=== PATIENT | male | born 1945 | race Caucasian/White ===

== ENCOUNTER → 2018-05-05 09:04 | Outpatient (CLI) | payer MEDICARE, SELFPAY ==
[2018-05-05 10:17] LABS: Appearance Urine UA CLEAR; Bilirubin Urine UA NEGATIVE (NEGATIVE); Color Urine UA YELLOW; Glucose Urine UA NEGATIVE (Negative); Ketones Urine UA NEGATIVE (NEGATIVE); Leukocyte Esterase Urine UA NEGATIVE (NEGATIVE); Nitrite Urine UA NEGATIVE (Negative); Occult Blood Urine UA NEGATIVE (Negative); Protein Urine UA NEGATIVE (Negative); Specific Gravity Urine UA 1.025 (1.000-1.035); Urobilinogen Urine UA 0.2 E.U./dL (0.2)
[2018-05-05 10:43] LABS: Bacteria Urine Occasional (0-1); Culture Indicated Urine Cult Not Indicated; Hyaline Casts Urine 1-5/LPF; Mucus Urine 1+ (Negative); RBC Urine 0-1/HPF (0-5/HPF); Squamous Epithelial Cell Urine 0-1 /HPF; WBC Urine 0-1/HPF (0-5/HPF)
== END ==
PROVIDERS: PCP Internal Medicine; Visit Provider Internal Medicine
DX: R36.1 Hematospermia (principal)
CPT/HCPCS: 81001

== ENCOUNTER → 2019-05-18 14:26 | Outpatient (CLI) | payer MEDICARE, SELFPAY ==
[2019-05-18 15:30] LABS: Hemoglobin A1C% w Est Avg Glu 10.6 % (4.0-6.0)
== END ==
PROVIDERS: PCP Internal Medicine; Referring Provider Internal Medicine; Visit Provider Internal Medicine
DX: E11.9 Type 2 diabetes mellitus without complications (principal); N48.1 Balanitis
CPT/HCPCS: 36415; 83036

== ENCOUNTER → 2019-09-01 10:57 | Outpatient (CLI) | payer MEDICARE, SELFPAY ==
--- NOTE | 2019-09-01 | DI.US.S_ITS ---
PROCEDURE: US ABDOMEN COMPLETE INDICATIONS: ABD PAIN TECHNIQUE: Real-time scanning was performed of the abdominal and retroperitoneal organs, with image documentation. COMPARISON: None. FINDINGS: Liver: Liver is diffusely increased in echogenicity. No focal hepatic abnormalities identified. Normal hepatic size. Gallbladder: Gallbladder is mildly contracted and there is a single stone which may be impacted. No gallbladder wall thickening or pericholecystic fluid. Biliary ducts: Not well visualized. Pancreas: Not well visualized. Spleen: Spleen is normal in size and homogeneous in echotexture. Kidneys: Kidneys are normal in size and echotexture. Right kidney measures 12.9 cm long; left kidney measures 13.3 cm long. No hydronephrosis or nephrolithiasis. No solid masses. Aorta: Not well visualized. Iliacs: Not well visualized. IVC: Not well visualized. Miscellaneous: No free abdominal fluid. IMPRESSION: 1. Increased hepatic echogenicity noted possibly related to hepatic steatosis but other sources of hepatocellular disease cannot be excluded. Recommend clinical correlation. 2. Cholelithiasis and mobility of the stone is indeterminate and may be impacted. Recommend clinical correlation and follow-up. Dictated by: Brennan Craft [facility] Interpreted: Chana Zamudio MD on 09/01/2019 at 12:18 Approved by: Chana Zamudio MD, PhD on 09/01/2019 at 14:11
== END ==
PROVIDERS: PCP Internal Medicine; Referring Provider Internal Medicine; Visit Provider Internal Medicine
DX: R10.84 Generalized abdominal pain (principal); K80.20 Calculus of gallbladder without cholecystitis without obstruction
CPT/HCPCS: 76700

== ENCOUNTER → 2019-09-10 11:26 | Outpatient (CLI) | payer MEDICARE, SELFPAY ==
[2019-09-12 21:00] LABS: COVID19 Sendout Not Detected (Not Detect)
== END ==
PROVIDERS: PCP Internal Medicine; Visit Provider Physician Assistant
DX: Z11.59 Encounter for screening for other viral diseases (principal)
CPT/HCPCS: 87635

== ENCOUNTER 2019-09-13 09:56 | Day surgery (SDC) | payer MEDICARE, SELFPAY ==
[2019-09-08 10:26] VITALS: BMI 36.3
[2019-09-13] VITALS (9 sets, daily range): BP systolic 135–151; BP diastolic 62–84; PULSE 57–75; RESP 15–20; TEMP 36–36.4; O2SAT 92–97; BMI 35.9
--- NOTE | 2019-09-13 | PATH_ITS ---
[facility] Accession Number: [id number] . 01 Material submitted: . gallbladder - GALLBLADDER . 02 Diagnosis: Gallbladder, Cholecystectomy: Cholelithiasis with mild active cholecystitis. Two benign cystic duct lymph nodes. No evidence of neoplasm. [facility] 09/15/2019 1338 Local . 02 Electronically signed: . Patrick Oswald MD, PhD, Pathologist NPI- [id number] . 01 Gross description: . Specimen A is received in formalin, labeled with patient identification and gallbladder. It consists of a disrupted gallbladder measuring 5.2 cm in length and 3.3 cm in diameter with a segment of possible cystic duct measuring 1.5 x 1.0 x 0.6 cm. The staple line of the possible cystic duct segment is removed and the tissue underneath is inked blue. The possible cystic duct is 0.5 cm in diameter. The serosa is pink-anton and diffusely covered by adipose tissue. The hepatic surface is yellow-anton and ragged. Opening the specimen reveals pink to yellow-anton and mildly velvety mucosa with three black calculi measuring 2.0 x 2.0 x 1.0 cm in aggregate. The wall thickness is 0.2 cm. Within the adipose tissue there are two lymph node candidates ranging from 0.5 to 0.9 cm in greatest dimension. Charging Car Operator sections are submitted in three cassettes. . Summary of sections: A1 - possible cystic duct margin, shaved, one piece. A2 - signs sales representative sections of gallbladder, three pieces. A3 - one intact lymph node candidate (inked) and one bisected lymph node candidate, three pieces. ([id number]) /[facility] 09/14/2019 1417 Local . 02 Pathologist provided ICD-10: K80.60, K81.0 . 02 CPT . 072049 Performed at: 01 [facility] [address] [place] [address], [place], [place] [id number] MD Ernie Collier MD Phone: [phone] Performed at: 02 [facility] [address] [place], [place] [id number] MD Brittany Reyes MD Phone: [phone]
[2019-09-13] MEDS: LACTATED RINGERS 1,000 ML 100 ML IV (10:43)
[2019-09-13] MEDS: LACTATED RINGERS 1,000 ML 42 ML IV (10:45)
--- NOTE | 2019-09-13 11:19 | PM.PREOP ---
Pre-operative Note COVID-19 COVID-19 status: Negative Interval Note History & Physical reviewed/Exam performed by Physician: Yes Changes to H&P: No
[2019-09-13] MEDS: CEFAZOLIN 2 GM/100 ML FROZ.PIGGY IV (11:40)
--- NOTE | 2019-09-13 12:02 | SUR.OPER ---
Supine on padded OR bed, head on pillow, safety belt at thigh, left arm padded and tucked at side. Right arm secured on padded arm oard <90 degrees abduction. Legs uncrossed. Padded footboard in place. Tape over blanket to secure lower legs.
[2019-09-13] MEDS: BUPIVACAINE 0.25% (PF) VIAL 30 ML INJ (12:07)
--- NOTE | 2019-09-13 13:29 | P.OP_ITS ---
Operative Date/Time/Diagnoses Date of procedure: 09/13/19 Time of procedure: 13:29 Pre-op diagnosis: Biliary colic Post-op diagnosis: other (Chronic cholecystitis) Procedure & Clinicians Procedure: Laparoscopic cholecystectomy Same procedure as scheduled: Yes Indications: 74-year-old man with biliary colic and cholelithiasis on imaging. Surgeon: Fede Rondon Anesthesia Type: General Operative Notes Findings: Chronic cholecystitis large gallstones Estimated Blood Loss (mL): 30 Procedure in detail: The patient was placed supine on the table and bilateral lower extremity compression devices were applied. Anesthesia was induced they were intubated with an endotracheal tube and received 2g of Ancef. A time-out was performed. They were prepped and draped in sterile fashion. An supraumbilical incision was made, the fascia was sharply incised entering the abdomen atraumatically. A blunt tip 12mm balloon trocar was then inserted, pneumoperitoneum was established and inspection of the abdomen demonstrated no evidence of injury. They were placed head up and right side up and then a 11 mm port was placed high in the epigastrium and two 5mm in the right upper quadrant. The gallbladder was grasped by the fundus and retracted over the liver and retracted laterally by the infundibulum. There was evidence of chronic cholecystitis demonstrated by extensive adhesions between the omentum and the gallbladder and the liver which was carefully skeletonized. Using electrocautery the lateral plane between the gallbladder and the liver was op ened towards the fundus. The gallbladder was then retracted laterally and the medial plane was developed in the same manner. With the gallbladder mobilized the bottom of the cystic plate was visualized. The hepatocystic triangle was meticulosly skeletonized using hook electrocautery of all fat and fibrous tissue from both the front and the back. Only two structures were then clearly seen entering the gallbladder the cystic duct and the cystic artery. With the critical view of safety fully established the cystic duct was clipped twice proximally and once distally using the 10 mm clip applied under direct visualization and then sharply divided. Additional and placed 1 PDS endo-loop over the cystic duct. The cystic artery was divided in the same fashion. The gallbladder was removed from the liver bed using electro cautery. The liver bed was then inspected for hemostasis and this was achieved. The abdomen was irrigated with sterile saline and inspection was made that showed the clips in good position. The specimen was removed using Endo-Catch. The abdomen was desufflated. The umbilical fascia was closed with 0 Vicryl in a [id number] fashion under direct visualization. Skin incisions were irrigated and closed with 4-0 Monocryl. 30 ml of 0.25% bupivacaine was infiltrated into the subcutaneous tissue of the incisions. The wounds were sealed with Dermabond. Patient emerged from anesthesia was extubated and transferred to recovery in stable condition. The sponge and instrument count at the end of the operation was correct. Complications: none Post-operative Condition: stable Disposition: same day surgery
[2019-09-13] MEDS: ONDANSETRON 4 MG/2 ML INJ IV (13:56)
[2019-09-13] MEDS: OXYCODONE/ACETAMINOPHEN 5/325 TABLET 1 TAB PO (14:11)
== END 2019-09-13 15:10 | disposition home or self-care (01) ==
PROVIDERS: PCP Internal Medicine; Referring Provider Surgery; Visit Provider Surgery
PROC: 0FT44ZZ Resection of Gallbladder, Percutaneous Endoscopic Approach (ICD-10-PCS; CPT 47562; principal; 2019-09-13 11:15)
DX: K80.10 Calculus of gallbladder with chronic cholecystitis without obstruction (principal); E11.9 Type 2 diabetes mellitus without complications; I10 Essential (primary) hypertension; Z79.84 Long term (current) use of oral hypoglycemic drugs
CPT/HCPCS: 47562; J0690; J1100; J1885; J2405; J2704; J3010

== ENCOUNTER → 2019-10-12 13:11 | Outpatient (CLI) | payer MEDICARE, SELFPAY ==
--- NOTE | 2019-10-12 | DI.RAD.S_ITS ---
PROCEDURE: XR THORACIC SPINE 2V INDICATIONS: BACK PAIN TECHNIQUE: 3 views of the thoracic spine were acquired. COMPARISON: None. FINDINGS: Bones: No fractures or dislocations. No suspicious bony lesions. Twelve pairs of ribs are noted, and appear intact where visualized. Degenerative disc disease is moderate in severity along the thoracic spine, which is relatively poorly seen on the lateral view at the cervical thoracic junction. No paravertebral soft tissue swelling is found. No subluxation is identified. Soft tissues: No paravertebral stripe thickening. IMPRESSION: Moderate degenerative disc disease, no acute disease found. No prior compression fracture identified. Dictated by: Alvaro Rizo M.D. on 10/12/2019 at 15:28 Approved by: Alvaro Rizo M.D. on 10/12/2019 at 15:29
--- NOTE | 2019-10-12 13:21 | DI.RAD.S_ITS ---
PROCEDURE: XR LUMBAR SPINE 2-3V INDICATIONS: ACUTE BILATERAL LOW BACK PAIN TECHNIQUE: 2 views of the lumbar spine were acquired. COMPARISON: None. FINDINGS: Bones: 5 [id number] vertebrae are present. There is normal bony alignment. No vertebral body compression fractures. No suspicious bony lesions. Degenerative disc disease is moderately severe from L3 through S1, becoming progressively more prominent. Similarly the facet osteoarthritis over these 3 lower levels becomes progressively more prominent and thus there is significant spinal and foraminal stenosis likely present at L4-5 and especially L5-S1. Soft tissues: Overlying bowel gas pattern is normal. No suspicious soft tissue calcifications. IMPRESSION: No compression fracture found. Progressively greater degenerative disc disease and facet osteoarthritis over the middle and lower thirds of the lumbosacral spine to the degree that significant spinal and foraminal stenosis likely is present at L4-5 and L5-S1. Dictated by: Alvaro Rizo M.D. on 10/12/2019 at 15:27 Approved by: Alvaro Rizo M.D. on 10/12/2019 at 15:28
[2019-10-12 16:28] LABS: Add Manual Diff / Slide Review NO; Basophils Absolute Auto 100 /uL (0-100); Basophils Percent Auto 0.9 % (0-2); Eosinophils Absolute Auto 100 /uL (0-450); Eosinophils Percent Auto 1.6 % (2-4); Hematocrit 38.9 % (41-53); Hemoglobin 13.2 g/dL (13.5-17.5); Lymphocytes Absolute Auto 1600 /uL (1100-4500); Lymphocytes Percent Auto 25.4 % (25-40); Mean Corpuscular Volume 88.1 fL (80-100); Monocytes Absolute Auto 600 /uL (0-900); Monocytes Percent Auto 8.7 % (3-14); Neutrophils Absolute Auto 4000 /uL (1500-7000); Neutrophils Percent Auto 63.4 % (50-75); Platelet Count 149 X10^3/uL (150-400); Red Blood Cell Count 4.41 X10^6/uL (4.5-5.9); Red Cell Distribution Width 13.3 % (11.6-14.8); White Blood Cell Count 6.4 X10^3/uL (4.5-11.0)
[2019-10-12 17:00] LABS: Alanine Aminotransferase 60 IU/L (<50); Albumin 3.9 g/dL (3.5-5.0); Albumin Globulin Ratio 1.6 (1.0-2.8); Alkaline Phosphatase 55 U/L (38-126); Aspartate Aminotransferase 47 IU/L (17-59); BUN Creatinine Ratio 18.2 (6-22); Bilirubin Total 1.3 mg/dL (0.2-1.3); Blood Urea Nitrogen 18 mg/dL (9-20); Calcium 9.2 mg/dL (8.4-10.2); Carbon Dioxide 29 mmol/L (22-32); Chloride 102 mmol/L (98-107); Estimated Glomerular Filt Rate > 60.0 mL/min (>60); Globulin 2.5 g/dL (1.7-4.1); Glucose 137 mg/dL (80-110); HEMOLYSIS < 15 (0-50); Potassium 4.3 mmol/L (3.4-5.1); Sodium 138 mmol/L (137-145); Total Protein 6.4 g/dL (6.3-8.2)
== END ==
PROVIDERS: PCP Internal Medicine; Referring Provider Internal Medicine; Visit Provider Internal Medicine
DX: M54.5 Low back pain (principal)
CPT/HCPCS: 36415; 72070; 72100; 80053; 85025

== ENCOUNTER → 2019-11-21 15:28 | Outpatient (CLI) | payer MEDICARE, SELFPAY ==
[2019-11-21 21:58] LABS: COVID19 -Nasal RAPID Negative (Negative)
== END ==
PROVIDERS: PCP Internal Medicine; Visit Provider Physician Assistant
DX: Z01.812 Encounter for preprocedural laboratory examination (principal)
CPT/HCPCS: 87635

== ENCOUNTER 2019-11-24 12:30 | Day surgery (SDC) | payer MEDICARE, SELFPAY ==
[2019-11-24 13:03] VITALS: BP 180/89; PULSE 59; RESP 19; TEMP 36.4; O2SAT 98; BMI 79.0
[2019-11-24] MEDS: LACTATED RINGERS 1,000 ML 200 ML IV (13:11)
--- NOTE | 2019-11-24 13:42 | PM.HP.1 ---
History of Present Illness History of Present Illness Date Patient Seen: 11/24/19 Time Patient Seen: 13:43 Chief complaint: [facility] Narrative: The patient presents for colorectal sreening. He had previously normal colonoscopy 20 years ago. No personal or family history of colon cancer. On further history denies any recent gastrointestinal symptoms. No nausea, vomiting, abdominal pain, loss of appetite, unexplained weight loss, change in bowel habits, diarrhea, constipation, melena, hematochezia, or bright red blood per rectum. Patient History Medical History Diabetes (Acute) HTN (hypertension) (Acute) Surgical History Hx of hernia repair (Acute) Family & Social History Family History Mother Breast cancer Gallstones Brother Hypertension Gallstones Father Heart disease Social History: household members significant other Tobacco & Substance use: Smoking Status Never smoker alcohol intake current alcohol intake frequency holiday/special occasion Substance Use Type does not use Meds Home Medications and Allergies Home Medications Medication Instructions Recorded Confirmed Type aspirin 81 mg tablet,delayed 81 mg PO DAILY 09/07/19 11/24/19 History release atenolol 50 mg tablet 50 mg PO DAILY 09/07/19 11/24/19 History cholecalciferol (vitamin D3) 10 10 mcg PO DAILY 09/07/19 11/24/19 History mcg (400 unit) capsule finasteride 5 mg tablet 5 mg PO DAILY 09/07/19 11/24/19 History glyburide 5 mg tablet 5 mg PO DAILY 09/07/19 11/24/19 History hydrochlorothiazide 25 mg tablet 12.5 mg PO DAILY 09/07/19 11/24/19 History lisinopril 40 mg tablet 40 mg PO DAILY 09/07/19 11/24/19 History metformin 1,000 mg tablet 1,000 mg PO BID 09/07/19 11/24/19 History simvastatin 40 mg tablet 40 mg PO QPM 09/07/19 11/24/19 History tamsulosin 0.4 mg capsule 0.4 mg PO DAILY cap 09/07/19 11/24/19 History travoprost 0.004 % eye drops 1 drp OPHTHALMIC (EYE) PRN PRN 09/07/19 11/24/19 History acetaminophen [Tylenol] 650 mg PO QID PRN #60 cap 09/13/19 11/24/19 Rx oxycodone 5 mg PO Q6H PRN #30 tab 09/13/19 09/28/19 Rx Allergies Allergy/AdvReac Type Severity Reaction Status Date / Time No Known Drug Allergies Allergy Verified 11/24/19 12:59 Review of Systems Review of Systems Narrative: A 10 point review of systems is negative except as noted in the HPI Exam Vital Signs (past 8 hours): - 11/24/19 13:03 Temperature 97.6 F Pulse Rate 59 L Respiratory Rate 19 Blood Pressure 180/89 H Pulse Oximetry 98 Oxygen Delivery Method Room Air Narrative Exam Narrative: General-no acute distress, obese male HEENT-moist mucous membranes, no scleral icterus Neck-supple, no lymphadenopathy Chest- non labored respirations, clear to auscultation bilaterally Cardiac-regular rate no peripheral edema Abdomen-soft, nontender, non distended Extremities-warm, well perfused Neurological-alert and oriented, no focal deficits Assessment & Plan Assessment & Plan narrative: The patient requires colorectal screening and colonoscopy is recommended. Technical details were discussed. Risks, benefits, alternatives explained. Risks including but not limited to myocardial infarction, aspiration, bleeding, pain, missed lesion, incomplete examination, need for further radiographic studies, colonic perforation, and need for major abdominal surgery were discussed. All questions were answered to their satisfaction, and they are in agreement with this plan.
[2019-11-24] MEDS: fentaNYL 250 MCG/5 ML INJ IV (13:50)
[2019-11-24] MEDS: MIDAZOLAM 5 MG/5 ML VIAL IV (13:53)
--- NOTE | 2019-11-24 14:12 | PM.OP.ENDO ---
Operative Date/Time/Diagnoses Date of procedure: 11/24/19 Time of procedure: 14:12 Pre-op diagnosis: Screening colonoscopy Post-op diagnosis: same Procedure & Clinicians Study performed: Colonoscopy Same procedure as scheduled: Yes Indications: 74-year-old male here for screening colonoscopy Surgeon: Fede Rondon Procedure Notes SCOAP/Timeout: Performed Procedure in detail: Patient placed in left lateral recumbent position. Time out was performed. Procedural sedation was administered with Versed and Fentanyl. Examination began with a thorough inspection of the perianal area there was no evidence of fissures, fistulae, external hemorrhoids or cutaneous malignancy. The colonoscopy scope was then placed into the rectum the the lumen was insufflated with air. The scope was carefully advanced forward. Ultimately the cecum was intubated and confirmed by identification of the ileocecal valve, the appendiceal orifice and the confluence of the taenia. The scope was then slowly withdrawn examining colon thoroughly in all directions. In the rectum the rectal columns were identified and retroflexion of the scope was performed for inspection of the distal rectum and anal canal. The colonoscopy was notable for the followin. Quality of the preparation-fair 2. No masses or polyps 3. Sigmoid diverticulosis 4. Internal hemorrhoids Scope withdrawal time: 8 Sedation minutes: 19 Findings: diverticulosis and internal hemorrhoids Specimen(s): none sent Complications: none Impression: Normal colonoscopy Post-procedure Recommendations: Colonscopy in 10 years Disposition: same day surgery
[2019-11-24 14:15] VITALS: BP 140/75; PULSE 60; RESP 16; TEMP 36.2; O2SAT 96
[2019-11-24 14:19] VITALS: BP 144/79; PULSE 65; RESP 20; O2SAT 98
[2019-11-24 14:24] VITALS: BP 156/87; PULSE 63; RESP 20; TEMP 37.3; O2SAT 99
[2019-11-24 14:36] VITALS: BP 152/80; PULSE 64; RESP 16; TEMP 36.7; O2SAT 97
== END 2019-11-24 14:50 | disposition home or self-care (01) ==
PROVIDERS: PCP Internal Medicine; Referring Provider Internal Medicine; Visit Provider Surgery
PROC: 0DJD8ZZ Inspection of Lower Intestinal Tract, Via Natural or Artificial Opening Endoscopic (ICD-10-PCS; CPT 45378; principal; 2019-11-24 13:45)
DX: Z12.11 Encounter for screening for malignant neoplasm of colon (principal); E11.9 Type 2 diabetes mellitus without complications; I10 Essential (primary) hypertension; Z79.84 Long term (current) use of oral hypoglycemic drugs; K57.30 Diverticulosis of large intestine without perforation or abscess without bleeding; K64.8 Other hemorrhoids
CPT/HCPCS: G0121; 99152; J2250; J3010

== ENCOUNTER → 2020-01-02 11:31 | Outpatient (CLI) | payer MEDICARE, SELFPAY | PROVIDERS: PCP Internal Medicine; Referring Provider Internal Medicine; Visit Provider Internal Medicine | DX: M10.00 Idiopathic gout, unspecified site (principal); Z53.20 Procedure and treatment not carried out because of patient's decision for unspecified reasons ==

== ENCOUNTER → 2021-12-30 15:28 | Outpatient (CLI) | payer MEDICARE, SELFPAY ==
[2021-12-30 17:01] LABS: Influenza A - CEPHEID Flu A NEGATIVE (NEGATIVE); Influenza B - CEPHEID Flu B NEGATIVE (NEGATIVE); Respiratory Syncytial Virus Negative (Negative)
[2021-12-30 17:10] LABS: COVID-19 CEPHEID 4-PLEX PCR Negative (Negative)
== END ==
PROVIDERS: PCP Internal Medicine; Visit Provider Nurse Practitioner Family
DX: R42 Dizziness and giddiness (principal); Z20.828 Contact with and (suspected) exposure to other viral communicable diseases
CPT/HCPCS: 0241U

== ENCOUNTER 2024-06-16 22:32 | Emergency (ER) | payer MEDICARE, SELFPAY ==
[2024-06-16 22:59] VITALS: BP 210/92; PULSE 75; RESP 18; TEMP 36.8; O2SAT 99; BMI 33.3
--- NOTE | 2024-06-16 23:49 | DI.RAD.S_ITS ---
PROCEDURE: XR CHEST 1V INDICATIONS: chest pain TECHNIQUE: One view of the chest was acquired. COMPARISON: None. FINDINGS: Surgical changes and devices: None. Lungs and pleura: Lungs are clear. No pleural effusions or pneumothorax. Mediastinum: Aortic arch calcifications. Mediastinal contours appear normal. Heart size is normal. Bones and chest wall: No suspicious bony lesions. Overlying soft tissues appear unremarkable. IMPRESSION: No acute cardiothoracic process. Dictated by: Devyn King M.D. on 06/17/2024 at 0:10 Approved by: Devyn King M.D. on 06/17/2024 at 0:11
--- NOTE | 2024-06-16 23:49 | EKG_ITS ---
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
--- NOTE | 2024-06-17 00:19 | ED.GENADULT ---
HPI - General Adult General Chief complaint: Hypertension Stated complaint: states high bp Time Seen by Provider: 06/16/24 23:49 Source: patient Mode of arrival: Ambulatory History of Present Illness HPI narrative: 78-year-old male with history of hypertension and diabetes, visiting from [facility] for local work, recalls having a diabetes oral medication that lowered his blood pressure, he has subsequently been switch to Ozempic and metformin, blood pressure seemed to be improved, taking lisinopril and atenolol medications, recheck his blood pressure with cuff that he is traveling with, elevated blood pressure readings. No chest pain. No headache. No focal weakness or numbness. Related Data Home Medications Medication Instructions Recorded Confirmed aspirin 81 mg tablet,delayed 81 mg PO DAILY 09/07/19 06/17/24 release atenolol 50 mg tablet 50 mg PO DAILY 09/07/19 06/17/24 cholecalciferol (vitamin D3) 10 10 mcg PO DAILY 09/07/19 06/17/24 mcg (400 unit) capsule finasteride 5 mg tablet 5 mg PO DAILY 09/07/19 06/17/24 glyburide 5 mg tablet 7.5 mg PO DAILY 09/07/19 06/17/24 lisinopril 40 mg tablet 40 mg PO DAILY 09/07/19 06/17/24 metformin 1,000 mg tablet 1,000 mg PO BID 09/07/19 06/17/24 simvastatin 40 mg tablet 40 mg PO QPM 09/07/19 06/17/24 tamsulosin 0.4 mg capsule (Flomax) 0.4 mg PO DAILY 09/07/19 06/17/24 colchicine 0.6 mg tablet See Rx Instructions .Route .COMPLEX 06/17/24 06/17/24 indomethacin 25 mg capsule 25 mg PO TID PRN Gout 06/17/24 06/17/24 latanoprost 0.005 % eye drops 1 drp ophthalmic (eye) BEDTIME 06/17/24 06/17/24 Previous Rx's Medication Instructions Recorded amlodipine 2.5 mg tablet 2.5 mg PO DAILY #14 tabs 06/17/24 Allergies Allergy/AdvReac Type Severity Reaction Status Date / Time No Known Drug Allergies Allergy Verified 06/23/22 10:42 Patient History Medical History (Updated 06/17/24 @ 01:52 by Chevy Martinez MD) HTN (hypertension) Diabetes Surgical History Hx of hernia repair Family History Mother Breast cancer Gallstones Brother Hypertension Gallstones Father Heart disease Social History (Updated 09/07/19 @ 15:08 by Joann Alberto RN) marital status: unmarried,living together household members: significant other occupational status: employed alcohol intake: current substance use type: does not use alcohol intake frequency: holidays/special occasions only Exam Narrative Exam Narrative: GENERAL: Well-developed patient, in mild distress. HEAD: Atraumatic. Normocephalic. EYES: Pupils equal round and reactive. Extraocular motions intact. No scleral icterus. No injection or drainage. ENT: Nose without bleeding, purulent drainage. Throat without erythema, tonsillar hypertrophy or exudate. Airway patent. NECK: Trachea midline. Non tender CARDIOVASCULAR: Regular rate and rhythm without murmurs, gallops, or rubs. RESPIRATORY: Clear to auscultation. Breath sounds equal bilaterally. No wheezes, rales, or rhonchi. GASTROINTESTINAL: Abdomen soft, non-tender, nondistended. EXTREMITIES: No edema or joint tenderness. BACK: Nontender without deformity or crepitance. No flank tenderness. NEURO: AOx3. Motor functions grossly nonfocal SKIN: No rash or erythema of visible areas Initial Vital Signs Initial Vital Signs: Vital Signs Temperature 98.2 F 06/16/24 22:59 Pulse Rate 75 06/16/24 22:59 Respiratory Rate 18 06/16/24 22:59 Blood Pressure 210/92 H 06/16/24 22:59 Pulse Oximetry 99 06/16/24 22:59 Oxygen Delivery Method Room Air 06/16/24 22:59 Course Orders Ordered: ED Orders 06/16/24 23:49 XR chest 1V Stat Complete Blood Count AUTO DIFF Stat Comprehensive Metabolic Panel Stat Lipase Stat Troponin & CK Cardiac Panel Stat EKG-12 Lead Stat 06/17/24 01:15 CT abdomen pelvis w con Stat Discontinued Medications Amlodipine Besylate (Amlodipine 5 Mg Tablet) 5 mg PO NOW ONE Stop: 06/17/24 00:22 Last Admin: 06/17/24 01:02 Dose: 5 mg Documented By: AB Vital Signs Vital signs: Vital Signs - 8 hr 06/16/24 22:59 06/17/24 00:42 06/17/24 01:00 Temperature 98.2 F Pulse Rate 75 76 84 Respiratory Rate 18 19 25 H Blood Pressure 210/92 H Pulse Oximetry 99 100 100 Oxygen Delivery Method Room Air 06/17/24 01:01 06/17/24 01:01 06/17/24 01:50 Temperature Pulse Rate 81 84 Respiratory Rate 26 H Blood Pressure 177/121 H Pulse Oximetry 100 98 Oxygen Delivery Method Room Air Room Air 06/17/24 01:50 Temperature Pulse Rate Respiratory Rate Blood Pressure 224/100 H Pulse Oximetry Oxygen Delivery Method Medical Decision Making Lab Data Lab results reviewed: Yes I reviewed the patient's lab results. Lab results narrative: White blood cell count 6800, hemoglobin 13.4, platelets adequate. Glucose 155. Remainder of basic metabolic panel unremarkable. Normal renal function. Potassium 3.8. T bili 1.9 side elevation noted, other LFTs unremarkable. Lipase 502 mild elevation. 06/17/24 00:20 06/17/24 00:20 Labs: Lab Results 06/17/24 Range/Units 00:20 WBC 6.8 (4.5-11.0) X10^3/uL RBC 4.42 L (4.5-5.9) X10^6/uL Hgb 13.4 L (13.5-17.5) g/dL Hct 38.6 L (41-53) % MCV 87.3 (80-100) fL MCH 30.4 (26-34) PG MCHC 34.8 (30-36) % RDW 14.1 (11.6-14.8) % Plt Count 148 L (150-400) X10^3/uL Neut % (Auto) 64.6 (50-75) % Lymph % (Auto) 24.7 L (25-40) % [place] % (Auto) 7.4 (3-14) % Eos % (Auto) 2.3 (2-4) % Baso % (Auto) 1.0 (0-2) % Neut # (Auto) 4400 (9801-8747) /uL Lymph # (Auto) 1700 (6461-9516) /uL [place] # (Auto) 500 (0-900) /uL Eos # (Auto) 200 (0-450) /uL Baso # (Auto) 100 (0-100) /uL Sodium 139 (137-145) mmol/L Potassium 3.8 (3.4-5.1) mmol/L Chloride 103 (98-107) mmol/L Carbon Dioxide 29 (22-32) mmol/L BUN 20 (9-20) mg/dL Creatinine 1.01 (0.66-1.25) mg/dL Estimated GFR > 60 (>60) mL/min BUN/Creatinine Ratio 19.8 (6-22) Glucose 155 H (70-99) mg/dL Calcium 8.8 (8.4-10.2) mg/dL Total Bilirubin 1.9 H (0.2-1.3) mg/dL AST 32 (17-59) IU/L ALT 25 (<50) IU/L Alkaline Phosphatase 68 (38-126) U/L Total Creatine Kinase 224 H (55-170) U/L Troponin I < 0.012 (0.01-0.034) ng/mL Total Protein 7.0 (6.3-8.2) g/dL Albumin 4.2 (3.5-5.0) g/dL Globulin 2.8 (1.7-4.1) g/dL Albumin/Globulin Ratio 1.5 (1.0-2.8) Lipase 502 H (23-300) U/L Imaging Data CT scan - abdomen/pelvis: Radiologist's Impression: [place] [address] CT Scan Report Signed Patient: Rudy Bravo MR#: [id number] : 1945 Acct:[id number] Age/Sex: 78 / M Date of Service: 06/17/24 Loc: ED Accession Number: [id number] Procedure: CT abdomen pelvis w con Ordering Provider: Chevy Martinez MD PROCEDURE: CT ABDOMEN PELVIS W CON INDICATIONS: lipasemia TECHNIQUE: After the administration of intravenous contrast, axial sections acquired from the lung bases to the pubic symphysis. Coronal and sagittal reformats were performed. For radiation dose reduction, the following was used: automated exposure control, adjustment of mA and/or kV according to patient size. COMPARISON: None. FINDINGS: Image quality: Diagnostic. Peritoneum: No pneumoperitoneum or ascites. Bones: No acute osseous abnormality. Mild multilevel lumbar osteoarthrosis. Lower Chest: Moderate triple-vessel coronary artery calcifications. Liver: Normal in size and contour. Hepatic steatosis. Gallbladder: Surgically absent. Biliary tree: No intrahepatic or extrahepatic biliary ductal dilatation. Pancreas: Within normal limits. No peripancreatic fluid collection or parenchymal non enhancement. Spleen: Normal in size and contour. Kidneys: No hydronephrosis or obstructive urolithiasis. Adrenals: No adrenal nodularity. 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 : Enlarged prostate gland indenting the base of the urinary bladder (83). Stomach: Normal in size and contour. Bowel: Normal in diameter without any bowel obstruction. Appendix within normal limits (). Lymph Nodes: No retroperitoneal, mesenteric, or inguinal lymphadenopathy. Vascular: No abdominal aortic aneurysm. 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 The visualized arterial vasculature is patent. Soft Tissues: No acute abnormality. IMPRESSION: 1. No CT evidence of acute pancreatitis or drainable peripancreatic fluid collection. 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 Nonemergent vascular surgery consultation would be recommended for further management. 3. Hepatic steatosis. Dictated by: Devyn King M.D. on 06/17/2024 at 1:44 Approved by: Devyn King M.D. on 06/17/2024 at 1:53 ECG Data Attestation: I personally reviewed and interpreted this ECG as follows: Interpretation: Normal sinus rhythm with first-degree AV block, ventricular rate 77, SC 232. QRS 128, QTC 473. MDM Narrative Medical decision making narrative: 78-year-old male with history of hypertension and diabetes, recent low blood pressure due to oral diabetic agent, improved with change to Ozempic/metformin combination, for blood pressure currently taking atenolol and lisinopril, also on tamsulosin for urinary retention/prostate indications. Elevated blood pressure. No chest pain. Screening labs sent. EKG shows sinus rhythm, first-degree AV block noted with SC interval 232. Chest x-ray, no acute changes. See tele radiology report. Screening labs normal renal function, lipase elevation 500s noted. Get recent abdominal pain that seemed to get better. We discussed imaging, he would like to proceed. CT abdomen and pelvis ordered. Elevated blood pressure, first-degree AV block noted, will not increase his atenolol for now due to AVB, already on maximum effective dose for blood pressure lisinopril, also taking tamsulosin. We will add amlodipine 5 mg tablet. Prescription for 2.5 mg tablets sent to his pharmacy. Can continue home blood pressure cuff readings, which seemed to be correlating to our readings. Advised to contact PCP advised via phone for titration of amlodipine and/or other agents as an outpatient. Patient did not want to stay for CT results, left against medical advice, with . Instructed to contact PCP for CT results. (0300, late entry, CT abdomen and pelvis showed no pancreatic lesions or inflammation) Discharge Plan Departure Patient Disposition: Left Against Medical Advice Clinical Impression: Hypertension, Elevated lipase, Left against medical advice Activity Restrictions/Additional Instructions: Visiting from [facility] for local work. Reported low blood pressure with oral diabetic medications that had been subsequently switched, now taking Ozempic and metformin with improved blood pressure. You are still taking lisinopril and atenolol medications. Elevated blood pressures noted on your cuff measurements. Confirmed same values here elevated. Screening labs showed elevated lipase of unclear significance, CT abdomen and pelvis to evaluate pancreas unremarkable. CT performed but you decided that you wanted to leave before any results were available. Blood pressure is still available. You left the emergency department against medical advice. Could consider increased dose of the atenolol but you had first-degree AV block conduction noted on your EKG, we will keep same dose of beta-saadia for now. Blood pressure elevated, oral dose of amlodipine 5 mg given. Prescription for 2.5 mg tablets to use daily if needed, could be increased to 5 mg in consultation with your regular doctor by phone in follow up. Lisinopril at 40 mg daily is about maximum in its blood pressure lowering effect. Call your doctor during regular hours tomorrow Thursday for further blood pressure measurement recommendations. You were also taking tamsulosin for urinary retention indications, which also has some blood pressure lowering effect, continue taking this medication as well. I did send a prescription for amlodipine 2.5 mg tablets to local pharmacy for you to pick up and delivery driver if you should use this option. Prescriptions: New amlodipine 2.5 mg tablet 2.5 mg PO DAILY Qty: 14 0RF No Action aspirin 81 mg tablet,delayed release (DR/EC) 81 mg PO DAILY atenolol 50 mg tablet 50 mg PO DAILY cholecalciferol (vitamin D3) 10 mcg (400 unit) capsule 10 mcg PO DAILY finasteride 5 mg tablet 5 mg PO DAILY tamsulosin [Flomax] 0.4 mg capsule 0.4 mg PO DAILY glyburide 5 mg tablet 7.5 mg PO DAILY lisinopril 40 mg tablet 40 mg PO DAILY metformin 1,000 mg tablet 1,000 mg PO BID simvastatin 40 mg tablet 40 mg PO QPM latanoprost 0.005 % Drops 1 drp OPHTHALMIC (EYE) BEDTIME indomethacin 25 mg Capsule 25 mg PO TID PRN (Reason: Gout) Rx Instructions: administer with food or milk colchicine 0.6 mg Tablet See Rx Instructions .ROUTE .COMPLEX Rx Instructions: Take 2 tablets by mouth at first sign of flare then take 1 tablet one hour later. Referrals: Parish Licona MD [Primary Care Provider] - Stand Alone Forms: Patient Portal/API, Against Med. Advice (Qatari)
[2024-06-17 00:35] LABS: Add Manual Diff / Slide Review NO; Basophils Absolute Auto 100 /uL (0-100); Eosinophils Absolute Auto 200 /uL (0-450); Eosinophils Percent Auto 2.3 % (2-4); Hematocrit 38.6 % (41-53); Hemoglobin 13.4 g/dL (13.5-17.5); Lymphocytes Absolute Auto 1700 /uL (1100-4500); Lymphocytes Percent Auto 24.7 % (25-40); Mean Corpuscular HGB Conc 34.8 % (30-36); Mean Corpuscular Hemoglobin 30.4 PG (26-34); Mean Corpuscular Volume 87.3 fL (80-100); Monocytes Absolute Auto 500 /uL (0-900); Monocytes Percent Auto 7.4 % (3-14); Neutrophils Absolute Auto 4400 /uL (1500-7000); Neutrophils Percent Auto 64.6 % (50-75); Platelet Count 148 X10^3/uL (150-400); Red Blood Cell Count 4.42 X10^6/uL (4.5-5.9); Red Cell Distribution Width 14.1 % (11.6-14.8); White Blood Cell Count 6.8 X10^3/uL (4.5-11.0)
[2024-06-17 00:42] VITALS: PULSE 76; RESP 19; O2SAT 100
[2024-06-17 00:45] LABS: Alanine Aminotransferase 25 IU/L (<50); Albumin 4.2 g/dL (3.5-5.0); Albumin Globulin Ratio 1.5 (1.0-2.8); Alkaline Phosphatase 68 U/L (38-126); Aspartate Aminotransferase 32 IU/L (17-59); BUN Creatinine Ratio 19.8 (6-22); Bilirubin Total 1.9 mg/dL (0.2-1.3); Blood Urea Nitrogen 20 mg/dL (9-20); Calcium 8.8 mg/dL (8.4-10.2); Carbon Dioxide 29 mmol/L (22-32); Chloride 103 mmol/L (98-107); Creatine Kinase 224 U/L (55-170); Estimated Glomerular Filt Rate > 60 mL/min (>60); Globulin 2.8 g/dL (1.7-4.1); Glucose 155 mg/dL (70-99); HEMOLYSIS < 15 (0-50); Lipase 502 U/L (23-300); Potassium 3.8 mmol/L (3.4-5.1); Sodium 139 mmol/L (137-145)
[2024-06-17 00:56] LABS: Troponin I < 0.012 ng/mL (0.01-0.034)
[2024-06-17 01:00] VITALS: PULSE 84; RESP 25; O2SAT 100
[2024-06-17 01:01] VITALS: BP 177/121; PULSE 81; RESP 26; O2SAT 100
[2024-06-17] MEDS: AMLODIPINE 5 MG TABLET PO (01:02)
--- NOTE | 2024-06-17 01:15 | DI.CT.S_ITS ---
PROCEDURE: CT ABDOMEN PELVIS W CON INDICATIONS: lipasemia TECHNIQUE: After the administration of intravenous contrast, axial sections acquired from the lung bases to the pubic symphysis. Coronal and sagittal reformats were performed. For radiation dose reduction, the following was used: automated exposure control, adjustment of mA and/or kV according to patient size. COMPARISON: None. FINDINGS: Image quality: Diagnostic. Peritoneum: No pneumoperitoneum or ascites. Bones: No acute osseous abnormality. Mild multilevel lumbar osteoarthrosis. Lower Chest: Moderate triple-vessel coronary artery calcifications. Liver: Normal in size and contour. Hepatic steatosis. Gallbladder: Surgically absent. Biliary tree: No intrahepatic or extrahepatic biliary ductal dilatation. Pancreas: Within normal limits. No peripancreatic fluid collection or parenchymal non enhancement. Spleen: Normal in size and contour. Kidneys: No hydronephrosis or obstructive urolithiasis. Adrenals: No adrenal nodularity. Bladder: Left superolateral 1.9 cm bladder dome diverticulum (2/121). : Enlarged prostate gland indenting the base of the urinary bladder (4/83). Stomach: Normal in size and contour. Bowel: Normal in diameter without any bowel obstruction. Appendix within normal limits (2/89). Lymph Nodes: No retroperitoneal, mesenteric, or inguinal lymphadenopathy. Vascular: No abdominal aortic aneurysm. 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 The visualized arterial vasculature is patent. Soft Tissues: No acute abnormality. IMPRESSION: 1. No CT evidence of acute pancreatitis or drainable peripancreatic fluid collection. 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 Nonemergent vascular surgery consultation would be recommended for further management. 3. Hepatic steatosis. Dictated by: Devyn King M.D. on 06/17/2024 at 1:44 Approved by: Devyn King M.D. on 06/17/2024 at 1:53
[2024-06-17 01:50] VITALS: BP 224/100; PULSE 84; O2SAT 98
== END 2024-06-17 01:57 | disposition left against medical advice (07) ==
PROVIDERS: Emergency Provider Emergency Medicine; PCP Internal Medicine
DX: I10 Essential (primary) hypertension (principal); R74.8 Abnormal levels of other serum enzymes; I44.0 Atrioventricular block, first degree; E11.9 Type 2 diabetes mellitus without complications; Z79.84 Long term (current) use of oral hypoglycemic drugs; Z53.29 Procedure and treatment not carried out because of patient's decision for other reasons
CPT/HCPCS: 36415; 71045; 74177; 80053; 82550; 83690; 84484; 85025; 93005; 93010; 99284; Q9967